=== PATIENT | female | born 1960 | race Caucasian/White ===

== ENCOUNTER 2017-03-27 09:30 | Emergency (ER) | payer OTHER ==
[~2017-03-27] VITALS: Ht 162.6 cm; Wt 81.6 kg
[2017-03-27 09:41] VITALS: BP_SYST 128
--- NOTE | 2017-03-27 09:45 | NUR ---
Patient to ER bed 2 to gown for evaluation. Side rails up. Report RECEIVED FROM JANIS ROA..
[2017-03-27 10:07] LABS: BILIRUBIN,URINE NEGATIVE (NEGATIVE); CLARITY/URINE CLEAR (CLEAR); COLOR,URINE YELLOW (YELLOW); GLUCOSE,URINE NEGATIVE (NEGATIVE); KETONES,URINE TRACE (NEGATIVE); LEUKOCYTE ESTERASE ,URINE 1+ (NEGATIVE); NITRITE, URINE NEGATIVE (NEGATIVE); PROTEIN URINE NEGATIVE (NEGATIVE); UROBILINOGEN,URINE 0.2 (0.2-1.0)
[2017-03-27 10:08] LABS: BLOOD, URINE TRACE (NEGATIVE)
[2017-03-27 10:12] LABS: BASOPHILS % (AUTO) 0.7 % (0.0-2.0); EOSINOPHILS % (AUTO) 0.1 % (0.0-4.0); HEMATOCRIT 44.9 % (36-48); LYMPHOCYTES # (AUTO) 1.7 K/uL (1.0-5.5); LYMPHOCYTES % (AUTO) 34.2 % (20.5-51.5); MEAN CORPUSCULAR HEMOGLOBIN 30 pg (27-31); MEAN CORPUSCULAR HGB CONC 33 % (32-36); MEAN CORPUSCULAR VOLUME 90 fL (79.0-98.0); MONOCYTES # (AUTO) 0.5 K/uL (0.0-1.0); MONOCYTES % (AUTO) 11.3 % (1.7-9.3); NEUTROPHILS # (AUTO) 2.7 K/uL (1.8-7.7); NEUTROPHILS % (AUTO) 53.7 % (40.0-70.0); PLATELET COUNT (AUTO) 216 K/uL (130-430); RED BLOOD CELL COUNT(AUTO) 5.02 MIL/uL (4.2-6.2); RED CELL DISTRIBUTION WIDTH 11.7 % (9.0-15.0); WHITE BLOOD COUNT (AUTO) 4.9 K/uL (4.8-10.8)
[2017-03-27 10:15] LABS: BACTERIA,URINE FEW /HPF (None Seen); MUCUS,URINE 1+ /LPF (None Seen); RBC,URINE 0-3 /HPF (0-3)
[2017-03-27 10:24] LABS: CALCIUM 9.1 mg/dL (8.4-11.0); CREATININE 0.83 mg/dL (0.55-1.30); POTASSIUM 3.4 mmol/L (3.5-5.1)
[2017-03-27 10:28] LABS: ALBUMIN 3.7 g/dL (3.4-4.8); TOTAL BILIRUBIN 0.3 mg/dL (0.0-1.0)
[2017-03-27] MEDS: NACL 0.9% 1,000 ML IV ONE (10:41)
--- NOTE | 2017-03-27 10:45 | NUR ---
Patient transported to radiology via GURNEY, accompanied by RAD STAFF.
[2017-03-27] MEDS: KETOROLAC TROMETHAMINE 30 MG VIAL IVP ONE (10:51)
--- NOTE | 2017-03-27 10:52 | NUR ---
Returned from radiology, back to [facility].
--- NOTE | 2017-03-27 11:30 | NUR ---
PT REPORTS PAIN RESOLVING, PT GIVEN TYLENOL FOR PAIN RELIEF
[2017-03-27] MEDS: POTASSIUM CHLORIDE 10 MEQ TAB.PRT.SR PO ONE (11:47)
[2017-03-27] MEDS: ACETAMINOPHEN 325 MG TABLET PO ONE (12:12)
[2017-03-27 12:49] VITALS: BP_SYST 124
--- NOTE | 2017-03-27 12:49 | NUR ---
Patient given written and verbal discharge instructions and verbalizes understanding. ER MD discussed with patient the results and treatment provided. Patient in stable condition. ID arm band removed. IV catheter removed intact and dressing applied, no active bleeding. Rx of Albuterol and Cipro given. Patient educated on pain management and to follow up with PMD. Pain Scale 0. Opportunity for questions provided and answered.
[2017-03-27] MEDS ORDERED: LORazepam 2 MG/ML VIAL (FOR ER USE) ONE (19:15)
== END 2017-03-27 12:49 | disposition home or self-care (01) ==
LOC: SED 09:30
DX: J40 Bronchitis, not specified as acute or chronic (principal); N39.0 Urinary tract infection, site not specified; R19.7 Diarrhea, unspecified; Z88.2 Allergy status to sulfonamides
CPT/HCPCS: 36415; 71046; 74176; 80053; 81000; 83605; 83690; 85025; 86710; 87040; 87086; 96361; 96374; 99285; J1885; J2060; J7030

== ENCOUNTER 2018-12-04 20:55 | Inpatient (IN) | payer OTHER ==
[~2018-12-04] VITALS: Ht 162.6 cm; Wt 86.6 kg
[2018-12-04 21:10] VITALS: BP_SYST 135
--- NOTE | 2018-12-04 21:30 | NUR ---
Patient triaged and placed in waiting room. VSS and patient appears in no acute distress at this time. Accompanied by , awaiting available bed, and MD notified of need for MSE.Dr Quezada notified pt has fever and elevated HR , Dr Quezada ordering labs at this time.
[2018-12-04 21:37] LABS: BILIRUBIN,URINE NEGATIVE (NEGATIVE); CLARITY/URINE CLEAR (CLEAR); COLOR,URINE YELLOW (YELLOW); GLUCOSE,URINE NEGATIVE (NEGATIVE); KETONES,URINE TRACE (NEGATIVE); LEUKOCYTE ESTERASE ,URINE NEGATIVE (NEGATIVE); NITRITE, URINE NEGATIVE (NEGATIVE); PH,URINE 7.5 (5.0-8.0); PROTEIN URINE NEGATIVE (NEGATIVE)
[2018-12-04 21:51] LABS: BLOOD, URINE TRACE (NEGATIVE)
[2018-12-04 21:52] LABS: BACTERIA,URINE RARE /HPF (None Seen); WBC,URINE 0-3 /HPF (0-3)
[2018-12-04 21:55] LABS: BASOPHILS % (AUTO) 0.5 % (0.0-2.0); EOSINOPHILS % (AUTO) 0.5 % (0.0-4.0); HEMATOCRIT 40.8 % (36-48); HEMOGLOBIN 14.1 g/dL (12.0-16.0); LYMPHOCYTES # (AUTO) 0.8 K/uL (1.0-5.5); LYMPHOCYTES % (AUTO) 11.5 % (20.5-51.5); MEAN CORPUSCULAR HEMOGLOBIN 31 pg (27-31); MEAN CORPUSCULAR HGB CONC 34 % (32-36); MEAN CORPUSCULAR VOLUME 91 fL (79.0-98.0); MONOCYTES # (AUTO) 0.5 K/uL (0.0-1.0); MONOCYTES % (AUTO) 7.4 % (1.7-9.3); NEUTROPHILS # (AUTO) 5.4 K/uL (1.8-7.7); NEUTROPHILS % (AUTO) 80.1 % (40.0-70.0); PLATELET COUNT (AUTO) 186 K/uL (130-430); RED BLOOD CELL COUNT(AUTO) 4.49 MIL/uL (4.2-6.2); WHITE BLOOD COUNT (AUTO) 6.7 K/uL (4.8-10.8)
[2018-12-04 22:07] LABS: CALCIUM 9.1 mg/dL (8.4-11.0); CREATININE 0.8 mg/dL (0.55-1.30); POTASSIUM 3.6 mmol/L (3.5-5.1)
--- NOTE | 2018-12-04 22:08 | NUR ---
Patient to ER bed 08 to gown for evaluation. Side rails up. Report given to JANINA PETERSEN
[2018-12-04 22:13] LABS: PROTHROMBIN TIME 10.1 SECS (9.5-12.5)
[2018-12-04 22:14] LABS: ALBUMIN 3.2 g/dL (3.4-4.8); TOTAL BILIRUBIN 0.4 mg/dL (0.0-1.0)
--- NOTE | 2018-12-04 22:15 | NUR ---
Pt C/O dizziness, weakness, nausea, vomiting, fever and diarrhea since Monday. Pt states symptoms are getting progressively worse. Denies any chest pain, shortness of breath, or any other symptoms at this time. Will continune to monitor.
--- NOTE | 2018-12-04 22:30 | NUR ---
# 18 gauge angiocath placed to RT AC. Use of asceptic technique. Opsite placed over site. Blood return noted. Blood for lab drawn from site. Flushed with 10 cc of normal saline. No evidence of infiltration noted. Patient tolerated well.
--- NOTE | 2018-12-04 22:35 | NUR ---
Pt ambulated to the restroom and proceeded to vomit. Dr. Quezada and verbal orders for Zofran 4mg IVP. Medication has been given, will continue to monitor.
[2018-12-04] MEDS ORDERED: ONDANSETRON HCL 4 MG/2 ML VIAL ONE (22:42)
[2018-12-04] MEDS ORDERED: ONDANSETRON HCL 4 MG/2 ML VIAL IVP ONE ×2 (23:00→23:30)
[2018-12-04] MEDS ORDERED: NACL 0.9% 1,000 ML IV ONE ×2 (23:15→23:30)
[2018-12-04] MEDS ORDERED: ACETAMINOPHEN 325 MG TABLET PO ONE (23:15)
--- NOTE | 2018-12-04 23:18 | NUR ---
ER Dr. Quezada at bedside examining patient.
[2018-12-04] MEDS ORDERED: MORPHINE 2 MG/ML INJ. SYRINGE IVP ONE (23:30)
--- NOTE | 2018-12-04 23:45 | NUR ---
Patient transported to radiology via gurney, accompanied by rad staff.
--- NOTE | 2018-12-04 23:54 | NUR ---
Pt returned in stable condition, will continue to monitor.
[2018-12-05] VITALS (7 sets, daily range): BP systolic 91–124
--- NOTE | 2018-12-05 | NUR ---
Pt is sleeping in bed, no acute distress noted at this time. Will continue to monitor.
[2018-12-05] MEDS ORDERED: metroNIDAZOLE 500 mg/NS 100 ML IV ONE (00:45)
[2018-12-05] MEDS ORDERED: OMEP40CA33 PO (01:26)
[2018-12-05] MEDS ORDERED: FIORINAL PO (01:26)
[2018-12-05] MEDS ORDERED: IBUP-1971 PO (01:26)
--- NOTE | 2018-12-05 01:26 | NUR ---
Medication reconciliation completed with information provided by patient. Any prior medication reconciliation on file was reviewed and corrected.
[2018-12-05] MEDS ORDERED: MORPHINE 2 MG/ML INJ. SYRINGE IVP PRN (02:00)
[2018-12-05] MEDS ORDERED: MORPHINE 2 MG/ML INJ. SYRINGE IVP ONE (02:15)
--- NOTE | 2018-12-05 02:32 | NUR ---
Patient will be admitted to care of Dr. Lan. Admitted to telemetry unit. Will go to room 100B. Belongings list completed. Summary report printed. Report will be given at bedside.
--- NOTE | 2018-12-05 02:49 | NUR ---
Pt will be medicated with Morphine prior to transfer to the floor.
[2018-12-05] MEDS: ONDANSETRON HCL 4 MG/2 ML VIAL IVP PRN ×3 (02:53→21:58)
--- NOTE | 2018-12-05 03:12 | NUR ---
ADMISSION NOTE Received patient from ER via gurney. Patient admitted with diagnosis of ABDOMINAL PAIN POSSIBLE DIVERTICULITIS. Patient is awake, alert, oriented X 4. Patient oriented to hospital room, call light, toileting, pain management and safety-teach back done. Patient informed that EMILY will be HER nurse and that their room number is 100B. Personal belongings checked and Belongings List documented. Call light within reach.
[2018-12-05] MEDS ORDERED: KCL 20 mEq in NS 1000 mL 1,000 ML IV ONE (03:24)
[2018-12-05] MEDS: KCL 20 mEq in NS 1000 mL 1,000 ML IV SCH ×2 (03:31→15:58)
--- NOTE | 2018-12-05 04:28 | NUR ---
RN NOTE PT REPORTING FEELING LIGHTHEADED AND SOB. PT SATTING 97% ON RA. PT PUT ON O2 AT 2L VIA NC. PT REPORTED FEELING LESS LIGHTHEADED. TO CALL .
--- NOTE | 2018-12-05 04:32 | NUR ---
SPOKE TO DR. REYES REGARDING PT'S REPORT OF FEELING CONGESTED IN THE CHEST AND INEFFECTIVE COUGH. MD ORDERED DUONEB BREATHING TREATMENT ONCE. WILL CARRY OUT.
[2018-12-05] MEDS ORDERED: IPRATROPIUM/ALBUTEROL SULFATE 3 ML AMPUL.NEB (DUONEB) INH SCH (04:44)
--- NOTE | 2018-12-05 05:00 | NUR ---
CONSULT: CONSULT CALLED FOR ABRAHAM RIVAS DR. WARPER FIXER THIS MORNING REASON FOR CONSULT: ABDOMINAL PAIN REQUESTING CONSULT: DR. REYES POCKET ASSEMBLER PHONE NUMBER: [phone]
--- NOTE | 2018-12-05 05:39 | NUR ---
SPOKE TO DR. REYES REGARDING PT'S CONTINUED NAUSEA AND HEADACHE. MD ORDERED REGLAN 10 MG IVP ONCE. MD ALSO ORDERED TYLENOL 650 MG RECTAL SUPPOSITORY Q6 PRN. WILL IMPLEMENT.
[2018-12-05] MEDS ORDERED: METOCLOPRAMIDE HCL 10 MG/2 ML VIAL IVP SCH (05:45)
[2018-12-05] MEDS ORDERED: ACETAMINOPHEN 650 MG SUPP.RECT RC PRN (05:45)
--- NOTE | 2018-12-05 05:45 | NUR ---
REGLAN PT GIVEN REGLAN 10 MG IVP ORDERED. MEDICATION DISCUSSED WITH PT, PT VERBALIZED UNDERSTANDING. SAFETY MAINTAINED. WILL MONITOR.
--- NOTE | 2018-12-05 07:23 | NUR ---
CLOSING NOTE PT RESTING IN BED, NO S/S OF ACUTE DISTRESS, ALL NEEDS MET, WILL ENDORSE CARE TO DAY SHIFT RN.
[2018-12-05] MEDS: PANTOPRAZOLE SODIUM 40 MG/VIAL (PROTONIX) IVP SCH (09:13)
[2018-12-05] MEDS ORDERED: INSULIN LISPRO SLIDING SCALE 100 UNITS/ML VIAL (humaLOG) SUBCUT PRN (09:15)
[2018-12-05] MEDS ORDERED: DEXTROSE 50%-WATER 50 ML DISP.SYRIN IVP PRN (09:30)
[2018-12-05] MEDS: metroNIDAZOLE 250 mg/NS 50 ML IV SCH ×2 (09:30→22:04)
[2018-12-05] MEDS ORDERED: GLUCOSE 15 GM GEL (in 37.5 GM TUBE) PO PRN (09:30)
[2018-12-05] MEDS ORDERED: D5W 1,000 ML IV PRN (09:30)
[2018-12-05] MEDS: LEVOFLOXACIN 500 MG/D5W 100 ML IV SCH (09:30)
[2018-12-05] MEDS: IPRATROPIUM/ALBUTEROL SULFATE 3 ML AMPUL.NEB (DUONEB) INH SCH ×2 (13:24→20:01)
--- NOTE | 2018-12-05 15:43 | NUR ---
PULMO CONSULT PAGED: PAGED MD GREWAL FOR CONSULT. S/W NMARISOL ANSWERING SERVICE.
[2018-12-05] MEDS ORDERED: IOHEXOL 100 ML IV ONE (18:20)
--- NOTE | 2018-12-05 19:15 | NUR ---
change of shift.pt.presents quiescent affect;calm.pt.presents studies re;abdomen pain/discomfort;ct-scan.pt.presents iv access; intact;patent: iv fluids infusing.pt.capable to ambulate w/out assistance.general status stable.respiratory status stable:unlabored.call light/ telephone w/in reach of the pt.
--- NOTE | 2018-12-05 20:00 | NUR ---
pt.assessed.v/s assessed.values w/in normal limits;02-sat%=96%@room air.breathing pattern/character;unlabored.i have apprised the pt.that snacks/beverages are available w/in the shift;w/in diet status;clear liquids.no requests posited@this hour.iv access; ;intact;patent.general status stable.no c/o pain,nausea.call light/telephone w/in reach of the pt.
--- NOTE | 2018-12-05 21:59 | NUR ---
PAGED I PAGED DR. REYES @ [phone] I SPOKE WITH LEN NELSON
--- NOTE | 2018-12-05 22:00 | NUR ---
p.assessed.pt.had requested medication nausea;i have administered zofran;4mg ivp.pt.has requested medication pain;fiorinal. i reviewed the emar;med-list and noted no fiorinal had not been ordered;pt.had c/o migraine pain.i apprised the pt.the attending md; to be paged.no additional requests@this hour.i have administered flagyl;abx;ivpb.call light/telephone w/in reach of the pt.iv fluids infusing. general status stable.respiratory status stable;unlabored.pt.capable to reposition self.
--- NOTE | 2018-12-05 22:01 | NUR ---
DR. REYES CALLED BACK
[2018-12-05] MEDS: ACETAMINOPHEN 325 MG TABLET PO PRN (22:29)
--- NOTE | 2018-12-05 22:30 | NUR ---
i had apprised the pt.that tylenol/morphine had been ordered/prn;pain.pt has requested tylenol awaiting the order for fiorinal. i have administered the tylenol;pain.to f/u re;pain medication efficacy per pain mgx protocol.
[2018-12-05] MEDS ORDERED: FIORCET PO SCH ×2 (23:00)
--- NOTE | 2018-12-06 | NUR ---
pt.assessed.v/s assessed;values w/in normal limits.o2-sat%=96%.i have assessed the blood glucose;value;101mg/dl.pt.had requested fiorcet.i have administered fiorcet po x2 tabs.no additional requests posited @this hour.iv access;intact;patent.iv fluids infusing.general status stable.respiratory status stable;unlabored.pt.capable to reposition self.call light/telephone w/in reach of the pt.
[2018-12-06] MEDS: KCL 20 mEq in NS 1000 mL 1,000 ML IV SCH (00:24)
[2018-12-06 00:39] VITALS: BP_SYST 132
[2018-12-06] MEDS: IPRATROPIUM/ALBUTEROL SULFATE 3 ML AMPUL.NEB (DUONEB) INH SCH ×4 (01:35→20:28)
--- NOTE | 2018-12-06 02:00 | NUR ---
pr.assessed.pt.presents quiescent affect;calm,somnolent.iv access;intact;patent;iv fluids infusing.general status stable.respiratory status sable;unlabored.pt.capable to reposition self.call light/telephone w/in reach of the pt.
--- NOTE | 2018-12-06 04:00 | NUR ---
pt.assessed.pt.presents quiescent affect;calm,somnolent.iv acces intact;patent;iv fluids infusing.general status stable.respiratory status stable;unlabored.pt.capable to reposition self.call light/telephone w/in reach of the pt.
--- NOTE | 2018-12-06 06:30 | NUR ---
pt.assessed.pt.presents quiescent affect;calm,resting.i have assessed the blood glucose;value;98mg/dl.i inquire if i may provide a snack.pt.requested jello and water.i have provided the jello/water.no c/o pain,nausea.iv acces intact;patent.pt.capable to reposition self. general status stable.respiratory status stable;unlabored.call light/telephone w/in reach of the pt.
[2018-12-06 06:47] LABS: ALANINE AMINOTRANSFERASE 42 U/L (12-78); ALBUMIN 2.9 g/dL (3.4-4.8); AMYLASE 37 U/L (0-100); ANION GAP 8 (5-15); ASPARTATE AMINOTRANSFERASE 31 U/L (10-37); BILIRUBIN,DIRECT 0.1 mg/dL (0.0-0.3); CALCIUM 9.1 mg/dL (8.4-11.0); CHLORIDE 108 mmol/L (98-107); CREATININE 0.55 mg/dL (0.55-1.30); GLUCOSE 93 mg/dL (70-99); LIPASE 81 U/L (73-393); POTASSIUM 3.8 mmol/L (3.5-5.1); SODIUM SERUM 142 mmol/L (136-145); TOTAL BILIRUBIN 0.3 mg/dL (0.0-1.0); UREA NITROGEN, BLOOD 5 mg/dL (8-21)
[2018-12-06 06:52] LABS: GFR AFRICAN AMERICAN 146 mL/min (>90)
[2018-12-06 07:13] LABS: BASOPHILS % (AUTO) 0.4 % (0.0-2.0); EOSINOPHILS % (AUTO) 0.9 % (0.0-4.0); HEMATOCRIT 37.5 % (36-48); HEMOGLOBIN 12.9 g/dL (12.0-16.0); LYMPHOCYTES # (AUTO) 1.4 K/uL (1.0-5.5); LYMPHOCYTES % (AUTO) 34.6 % (20.5-51.5); MEAN CORPUSCULAR HEMOGLOBIN 31 pg (27-31); MEAN CORPUSCULAR HGB CONC 35 % (32-36); MEAN CORPUSCULAR VOLUME 91 fL (79.0-98.0); MONOCYTES # (AUTO) 0.7 K/uL (0.0-1.0); MONOCYTES % (AUTO) 16.5 % (1.7-9.3); NEUTROPHILS % (AUTO) 47.6 % (40.0-70.0); PLATELET COUNT (AUTO) 179 K/uL (130-430); RED BLOOD CELL COUNT(AUTO) 4.13 MIL/uL (4.2-6.2); RED CELL DISTRIBUTION WIDTH 13.2 % (9.0-15.0); WHITE BLOOD COUNT (AUTO) 4.1 K/uL (4.8-10.8)
[2018-12-06 07:30] VITALS: BP_SYST 122
--- NOTE | 2018-12-06 08:00 | NUR ---
OPENING NOTES Pt. is laying in bed and awake. AAOx4. Pt. complains of pain only when coughing, pain scale (numeric) ranging from 2-3. However, pt. current denies any pain and refuses pain medication. Pt. is cooperative this morning and no signs or symptoms of distress noted. Safety precautions in place. IV on her right AC [address] and intact. Call light in reach. Continue to monitor.
[2018-12-06] MEDS: LEVOFLOXACIN 500 MG/D5W 100 ML IV SCH (09:07)
[2018-12-06] MEDS: PANTOPRAZOLE SODIUM 40 MG/VIAL (PROTONIX) IVP SCH (10:13)
[2018-12-06] MEDS: metroNIDAZOLE 250 mg/NS 50 ML IV SCH ×2 (10:17→21:41)
--- NOTE | 2018-12-06 11:44 | NUR ---
Assumed Care: Received report from Esequiel .Seen patient in the room,informed the patient i will be her nurse today.Call light with in reach. Bed locked at lowest position. No complained made.
[2018-12-06 12:00] VITALS: BP_SYST 119
--- NOTE | 2018-12-06 12:00 | NUR ---
BLOOD SUGAR: BLOOD SUGAR =105MG/DL,NO INSULIN COVERAGE NEEDED PER SLIDING SCALE.
--- NOTE | 2018-12-06 16:05 | NUR ---
Dietitian Recommendations * Recommend continuing full liquid diet * Consider advance to soft (low fiber/bland) diet if/when medically appropriate * RD to provide low-fiber medical nutrition therapy education MANDI DORAN Please refer to Nutrition Assessment for details. Addendum: 12/06/18 at [address] Amended: Links added.
[2018-12-06] MEDS ORDERED: COMMUNICATION ORDER XX PRN (16:30)
[2018-12-06] MEDS: guaiFENesin 200 MG/CODEINE 20 MG/ 10 ML UDC PO PRN (16:31)
[2018-12-06] MEDS: 0.45% NACL 1,000 ML IV SCH (16:32)
--- NOTE | 2018-12-06 16:51 | NUR ---
IV NOTES: IV RE SITED AT LEFT FOREARM USING G#22,CONTINUE IVF ORDERED.
[2018-12-06] MEDS ORDERED: FIORICET PO PRN (17:00)
--- NOTE | 2018-12-06 17:25 | NUR ---
BLOOD SUGAR: BLOOD SUGAR TAKEN,NO INSULIN NEEDED PER SLIDING SCALE.
[2018-12-06 17:38] VITALS: BP_SYST 129
--- NOTE | 2018-12-06 18:37 | NUR ---
END OF SHIFT: PATIENT FINISHED DINNER. STILL COUGHING DRY. CALL LIGHT WITH IN REACH. BED LOCKED AT LOWEST POSITION. PRACTICE GUIDELINES MET THOUGH OUT SHIFT.
--- NOTE | 2018-12-06 19:30 | NUR ---
Opening notes Received report. Patient resting comfortably in bed. No signs of distress noted. Breathing even and unlabored. IV patent and intact, infusing fluids. No needs at this time. Call light with the patient. Safety precautions in place.
[2018-12-06 20:00] VITALS: BP_SYST 126
--- NOTE | 2018-12-06 20:38 | NUR ---
PAGED PAGED DR. REYES FOR ORDERS, SPOKE WITH KHOA
--- NOTE | 2018-12-06 21:00 | NUR ---
Resting Patient and patient belongings moved to room 117B. Patient ambulatory with steady gait. Oriented patient to room and call light. Spoke to Dr. Lan about patient not being able to sleep and requesting sleep medicine. Orders to be entered by RN. No other needs. Call light with the patient. Safety precautions in place.
[2018-12-06] MEDS ORDERED: LORazepam 1 MG TABLET PO SCH (21:30)
[2018-12-07 00:19] VITALS: BP_SYST 112
--- NOTE | 2018-12-07 00:30 | NUR ---
Resting Patient resting in bed. No signs of distress noted. Accucheck 90. No insulin necessary. No other needs. Call light with the patient. Safety precautions in place.
[2018-12-07] MEDS: IPRATROPIUM/ALBUTEROL SULFATE 3 ML AMPUL.NEB (DUONEB) INH SCH ×4 (01:00→23:08)
--- NOTE | 2018-12-07 02:30 | NUR ---
Sleeping No signs of distress noted. Breathing even and unlabored. IVF infusing well. Call light with the patient. Safety precautions in place.
--- NOTE | 2018-12-07 04:30 | NUR ---
Sleeping No signs of distress noted. Breathing even and unlabored. IVF infusing well. Call light with the patient. Safety precautions in place.
[2018-12-07] MEDS: 0.45% NACL 1,000 ML IV SCH (06:25)
--- NOTE | 2018-12-07 06:59 | NUR ---
Closing notes Patient resting in bed. No signs of distress noted. Breathing even and unlabored. New bag of IVF hung. Accucheck 97. No insulin necessary. All needs met throughout the shift. Call light with the patient. Safety precautions in place. Will endorse care to day shift RN.
[2018-12-07 07:43] LABS: CREATININE 0.64 mg/dL (0.55-1.30); TOTAL BILIRUBIN 0.3 mg/dL (0.0-1.0)
[2018-12-07 08:00] VITALS: BP_SYST 112
--- NOTE | 2018-12-07 08:00 | NUR ---
ASSUMPTION OF CARE: RECEIVED PT A/A/OX4, DX:ALTERATION IN COMFORT, R/T ABDOMINAL PAIN, DIVERTICULITIS. PT HAS NO S/S OF DISTRESS, NO C/O OF PAIN AT THIS TIME, VSS, AFEBRILE, BREATH SOUNDS ARE CLEAR, BREATHING UNLABORED, NON-PRODUCTIVE COUGH NOTED, IV SITE INTACT, PATENT, NO REDNESS OR SWELLING, ORIENTED TO UNIT, CALL LIGHT PLACED WITHIN REACH, WILL CON'T TO MONITOR AND ASSESS.
[2018-12-07] MEDS ORDERED: BISACODYL 5 MG TABLET.DR (DULCOLAX) PO ONE (08:30)
[2018-12-07] MEDS: PANTOPRAZOLE SODIUM 40 MG/VIAL (PROTONIX) IVP SCH (08:46)
[2018-12-07] MEDS: LEVOFLOXACIN 500 MG/D5W 100 ML IV SCH (08:46)
[2018-12-07] MEDS: POLYETHYLENE GLYCOL 3350, 17 GM/ POWD.PACK PO SCH ×2 (08:46→21:14)
[2018-12-07] MEDS: guaiFENesin 200 MG/CODEINE 20 MG/ 10 ML UDC PO PRN ×2 (08:47→21:10)
[2018-12-07] MEDS: metroNIDAZOLE 250 mg/NS 50 ML IV SCH ×2 (08:56→21:10)
--- NOTE | 2018-12-07 09:00 | NUR ---
PASTE UP ARTIST: MORNING MEDS GIVEN, PER ORDERED BY Tomasz, TOLERATED WELL, WILL CON'T TO MONITOR AND ASSESS.
--- NOTE | 2018-12-07 11:30 | NUR ---
GLUCOSE MONITORING: BLOOD SUGAR LEVEL=95, NO COVERAGE REQUIRED, PT HAS NO DISTRESS NOTED, NO C/O ANY KIND, CALL LIGHT WITHIN REACH, WILL CON'T TO MONITOR AND ASSESS.
[2018-12-07] MEDS: ACETAMINOPHEN 325 MG TABLET PO PRN (11:42)
[2018-12-07 12:50] VITALS: BP_SYST 120
--- NOTE | 2018-12-07 13:00 | NUR ---
NURSES NOTES: PT RESTING IN POSITION OF COMFORT, NO SIGNIFICANT CHANGES NOTED, NO REQUEST MADE, NEEDS MET, WILL CON'T WITH POC.
--- NOTE | 2018-12-07 15:00 | NUR ---
NURSES NOTES: PT RESTING IN POSITION OF COMFORT, NO CHANGES NOTED, NO REQUEST MADE, NEEDS MET, WILL CON'T WITH POC.
[2018-12-07 16:51] VITALS: BP_SYST 124
--- NOTE | 2018-12-07 17:00 | NUR ---
GLUCOSE MONITORING: BLOOD SUGAR EDIMF=979, NO COVERAGE REQUIRED, PT HAS NO DISTRESS NOTED, NO C/O ANY KIND, CALL LIGHT WITHIN REACH, WILL CON'T TO MONITOR AND ASSESS.
[2018-12-07] MEDS ORDERED: BUDESONIDE 0.5 MG/2 ML AMPUL.NEB INH ONE (17:15)
[2018-12-07] MEDS ORDERED: LEVO750T45 PO (18:56)
[2018-12-07] MEDS ORDERED: ALBMDI INH (18:57)
[2018-12-07] MEDS ORDERED: BECL10.62 IH (19:00)
[2018-12-07] MEDS ORDERED: PHEDM120 PO (19:02)
--- NOTE | 2018-12-07 19:45 | NUR ---
INITIAL NOTE AT INITIAL ASSESSMENT, PATIENT IS RESTING IN BED, STABLE, NO SIGNS OF RESPIRATORY DISTRESS. IS AT BEDSIDE. PATIENT VERBALIZES NO PAIN. PLAN OF CARE FOR THE EVENING IS COMMUNICATED WITH THE PATIENT AND HER . PATIENT SUCCESSFULLY DEMONSTRATES CORRECT USAGE OF CALL LIGHT. BED IS LOCKED, ALARMED, AND AT THE LOWEST LEVEL. FALL AND SAFETY PRECAUTIONS WILL BE IN PLACE THROUGHOUT THE SHIFT.
[2018-12-07 20:35] VITALS: BP_SYST 126
--- NOTE | 2018-12-07 21:45 | NUR ---
NOTE PATIENT IS RESTING IN BED, STABLE, NO SIGNS OF RESPIRATORY DISTRESS. IS AT BEDSIDE. CALL LIGHT IS WITHIN REACH. BED IS LOCKED, ALARMED, AND AT THE LOWEST SETTING.
--- NOTE | 2018-12-07 22:15 | NUR ---
D/C Patient Patient given medication reconciliation form and D/C instructions. Exit Care provided. Patient verbalized understanding. MD discussed with patient the results and treatment provided. Ambulatory with steady gait for discharge to home. Patient in stable condition, ID band removed. IV catheter removed, intact and dressing applied, no active bleeding. Rx of PATIENT given. Patient educated on pain management. All belongings sent with patient.
== END 2018-12-07 22:15 | disposition home or self-care (01) | DRG 871 ==
LOC: SED 20:55 → STU 12-05 01:54
PROVIDERS: ADMIT Internal Medicine; ATTEND Internal Medicine
DX: A41.9 Sepsis, unspecified organism (principal); J18.1 Lobar pneumonia, unspecified organism; K57.32 Diverticulitis of large intestine without perforation or abscess without bleeding; E87.1 Hypo-osmolality and hyponatremia; K59.00 Constipation, unspecified; I34.1 Nonrheumatic mitral (valve) prolapse; K21.9 Gastro-esophageal reflux disease without esophagitis; I34.0 Nonrheumatic mitral (valve) insufficiency; R73.9 Hyperglycemia, unspecified; G44.009 Cluster headache syndrome, unspecified, not intractable; Z80.0 Family history of malignant neoplasm of digestive organs; Z83.3 Family history of diabetes mellitus; Z88.2 Allergy status to sulfonamides; Z79.899 Other long term (current) drug therapy; Z95.0 Presence of cardiac pacemaker; Z86.73 Personal history of transient ischemic attack (TIA), and cerebral infarction without residual deficits; Z98.891 History of uterine scar from previous surgery
CPT/HCPCS: 36415; 71045; 71260-TC; 80048; 80053; 80076; 81000-TC; 82150-TC; 82550-TC; 82962; 83605; 83690-TC; 83880; 84484; 85025; 85610-TC; 85730-TC; 86710; 87040-TC; 93005; 94640; 94760; 96361; 96365; 96366; 96367; 96375; 96376; 99285; C9113; G0378; J1956; J2270; J2405; J2765; J3480; J3490; J7620; Q9967

== ENCOUNTER 2018-12-10 12:25 | Outpatient (CLI) | payer OTHER ==
[~2018-12-10 12:25] MED LIST: ALBMDI INH; BECL10.62 IH; FIORINAL PO; IBUP-1971 PO; LEVO750T45 PO; OMEP40CA33 PO; PHEDM120 PO
== END 2018-12-10 21:05 | disposition home or self-care (01) ==
LOC: SRD 12:25
PROVIDERS: ATTEND Internal Medicine
DX: J18.9 Pneumonia, unspecified organism (principal)
CPT/HCPCS: 71046-TC

== ENCOUNTER 2019-10-14 15:52 | Inpatient (IN) | payer OTHER ==
[~2019-10-14] VITALS: Ht 162.6 cm; Wt 83.5 kg
[2019-10-14 15:58] VITALS: BP_SYST 141
--- NOTE | 2019-10-14 16:09 | NUR ---
Patient triaged and placed in waiting room. VSS and patient appears in no acute distress at this time. Awaiting available bed, and MD notified of need for MSE.
--- NOTE | 2019-10-14 16:10 | NUR ---
EMMANUEL Jenkins examining patient.
[2019-10-14] MEDS ORDERED: ASPIRIN 81 MG TAB.CHEW PO ONE (16:15)
[2019-10-14] MEDS ORDERED: MAG HYDROX/AL HYDROX/SIMETH 30 ML, DICYCLOMINE HCL 20 MG, LIDOCAINE VISCOUS 2% 15ML (PO... PO ONE ×3 (16:30)
[2019-10-14] MEDS ORDERED: ONDANSETRON 4 MG ODT TAB PO ONE (16:30)
[2019-10-14 17:22] LABS: BASOPHILS % (AUTO) 0.5 % (0.0-2.0); EOSINOPHILS % (AUTO) 0.6 % (0.0-4.0); HEMATOCRIT 43.9 % (36-48); HEMOGLOBIN 14.4 g/dL (12.0-16.0); LYMPHOCYTES # (AUTO) 1.5 K/uL (1.0-5.5); LYMPHOCYTES % (AUTO) 20.6 % (20.5-51.5); MEAN CORPUSCULAR HEMOGLOBIN 30 pg (27-31); MEAN CORPUSCULAR HGB CONC 33 % (32-36); MEAN CORPUSCULAR VOLUME 91 fL (79.0-98.0); MONOCYTES # (AUTO) 0.5 K/uL (0.0-1.0); MONOCYTES % (AUTO) 7.1 % (1.7-9.3); NEUTROPHILS # (AUTO) 5.3 K/uL (1.8-7.7); NEUTROPHILS % (AUTO) 71.2 % (40.0-70.0); PLATELET COUNT (AUTO) 234 K/uL (130-430); RED BLOOD CELL COUNT(AUTO) 4.81 MIL/uL (4.2-6.2); RED CELL DISTRIBUTION WIDTH 13.2 % (9.0-15.0); WHITE BLOOD COUNT (AUTO) 7.4 K/uL (4.8-10.8)
[2019-10-14 17:46] LABS: CALCIUM 10.2 mg/dL (8.4-11.0); CREATININE 0.71 mg/dL (0.55-1.30); POTASSIUM 4.1 mmol/L (3.5-5.1)
[2019-10-14 17:51] LABS: ALBUMIN 3.7 g/dL (3.4-4.8); TOTAL BILIRUBIN 0.3 mg/dL (0.0-1.0)
--- NOTE | 2019-10-14 18:06 | NUR ---
Patient to ER bed hallway for evaluation. Side rails up. Report given to JANINA Hansen.
--- NOTE | 2019-10-14 18:08 | NUR ---
Pt brought by self, A&Ox4, pt presents to ER with R lower abdominal pain radiating to R flank area, also c/o N/V, skin pink and warm, cap refill <3, VSS, respirations even and unlabored.
[2019-10-14] MEDS ORDERED: DIPHENHYDRAMINE INJ 50 MG/ML VIAL IM ONE (18:15)
[2019-10-14] MEDS ORDERED: MORPHINE SULFATE 10 MG/ML VIAL IM ONE (18:15)
[2019-10-14 18:23] LABS: BILIRUBIN,URINE NEGATIVE (NEGATIVE); BLOOD, URINE NEGATIVE (NEGATIVE); CLARITY/URINE CLEAR (CLEAR); COLOR,URINE YELLOW (YELLOW); GLUCOSE,URINE NEGATIVE (NEGATIVE); KETONES,URINE NEGATIVE (NEGATIVE); LEUKOCYTE ESTERASE ,URINE NEGATIVE (NEGATIVE); NITRITE, URINE NEGATIVE (NEGATIVE); PH,URINE 5.5 (5.0-8.0); PROTEIN URINE NEGATIVE (NEGATIVE); UROBILINOGEN,URINE 0.2 (0.2-1.0)
--- NOTE | 2019-10-14 18:25 | NUR ---
Pt refused morphine at this time, Misty Markham notified.
[2019-10-14] MEDS ORDERED: HYDROcodone/ACETAMIN 5-325 MG TAB (NORCO/ VICODIN) PO ONE (18:30)
[2019-10-14] MEDS ORDERED: ALBUTEROL MDI INHALATION 8 GM INH INH SCH (20:15)
[2019-10-14] MEDS ORDERED: MORPHINE 2 MG/ML INJ. SYRINGE IVP PRN (20:15)
[2019-10-14] MEDS ORDERED: METOCLOPRAMIDE HCL 10 MG/2 ML VIAL IVP PRN (20:15)
[2019-10-14] MEDS ORDERED: ONDANSETRON HCL 4 MG/2 ML VIAL IVP PRN (20:15)
--- NOTE | 2019-10-14 20:30 | NUR ---
Pt A&Ox4, VSS, respirations even and unlabored, pt resting at this time
[2019-10-14 20:48] VITALS: BP_SYST 125
[2019-10-14] MEDS: D5NS 1,000 ML IV SCH (21:06)
[2019-10-14] MEDS: MORPHINE 4 MG/ML INJ. SYRINGE IVP PRN (21:10)
[2019-10-15] MEDS ORDERED: OMEP20TA20 PO (00:29)
[2019-10-15 00:49] VITALS: BP_SYST 115
--- NOTE | 2019-10-15 00:56 | NUR ---
Patient will be admitted to care of Dr Albarran . Admitted to medsurg unit. Will go to room 100A. Belongings list completed. Complete and up to date summary report printed. SBAR report to be given at bedside with opportunity for questions.
--- NOTE | 2019-10-15 05:00 | NUR ---
CONSULTATION PAGED/CALLED Reason for Consultation: CHOLECYSTITIS Person Who was Notified: DENIZ Consulting Physician: Yuko DEAN Sports Trainer Specialty: Ordering Physician:
[2019-10-15] MEDS: MORPHINE 4 MG/ML INJ. SYRINGE IVP PRN (05:58)
[2019-10-15] MEDS ORDERED: ALBUTEROL SULFATE 0.083% 2.5 MG/3 ML VIAL.NEB INH PRN (07:00)
--- NOTE | 2019-10-15 07:00 | NUR ---
OPENING NOTE Assumed care from malariologist RN at 0700 am. Patient alert awake oriented. Able to make needs known. Patient vital signs stable. Will continue care. 1000. Patient has clear liquid order and NPO after midnight for SHERRI Chandra, Will get consent from patient b/4 change of shift. Patient still has moderated abd pain. IV fluid infusing. Will continue care 1200: Patient C/O headache and Tylenol given. IV site changed to left upper arm. Will continue care Addendum: 10/15/19 at 1923 by Herlinda Emmanuel RN 1824: Patient signed consent for surgery. Tolerated clear liquid diet. CLOSING NOTE 1920: Report given to Angela ROA. No major changes noted
[2019-10-15] MEDS: BUDESONIDE 0.5 MG/2 ML AMPUL.NEB INH SCH ×2 (08:08→20:30)
[2019-10-15 08:43] VITALS: BP_SYST 110
[2019-10-15] MEDS: D5NS 1,000 ML IV SCH ×2 (10:00→22:45)
[2019-10-15 11:24] VITALS: BP_SYST 119
[2019-10-15] MEDS: ACETAMINOPHEN 325 MG TABLET PO PRN (11:34)
[2019-10-15 15:29] VITALS: BP_SYST 119
--- NOTE | 2019-10-15 19:30 | NUR ---
Initial note: Received report from sea RN. Patient is in bed, resting. No acute distress. Even, nonlabored breathing on room air. IV fluids is infusing as ordered. IV site is patent and intact. Notified patient that she has to be NPO after midnight. Patient verbalized understanding. Bed is locked at lowest position. Side rails up x2. Bed alarm is on. Call light is with patient. Safety and fall precautions in place. Will continue plan of care.
[2019-10-15 20:00] VITALS: BP_SYST 117
--- NOTE | 2019-10-15 22:00 | NUR ---
Rounds: Patient is in bed, resting. No s/s of acute distress. Tolerating room air. Respirations are even and nonlabored. Call light is with patient. Safety and fall precautions in place. Will continue to monitor.
[2019-10-16] VITALS: BP_SYST 117; BP_SYST 120
--- NOTE | 2019-10-16 00:10 | NUR ---
Rounds: Patient is sleeping in bed. No signs of acute distress. Respirations are even, nonlabored on room air. Call light is with patient. Safety and fall precautions in place. Will continue monitoring.
--- NOTE | 2019-10-16 02:19 | NUR ---
Rounds: Patient is in bed, sleeping. No signs of acute distress. Even, nonlabored breathing on room air. Call light is with patient. Safety and fall precautions in place. Will continue to monitor.
--- NOTE | 2019-10-16 04:55 | NUR ---
Rounds: Patient is in bed, resting. No acute distress. Respirations are even and nonlabored on room air. Call light is with patient. Safety and fall precautions in place. Will continue monitoring.
--- NOTE | 2019-10-16 06:42 | NUR ---
Closing note: Patient is in bed, resting. No acute distress. Even, nonlabored breathing on room air. IV fluids infusing as ordered. IV site patent and intact. All needs met. Bed is locked at lowest position. Side rails up x2. Call light is with patient. Safety and fall precautions in place. Will endorse care to dayshift RN.
--- NOTE | 2019-10-16 06:57 | NUR ---
Spoke to OR: Spoke to Gregoria in the OR. Confirmed consent for surgery was signed. Was told patient transfer to OR will be between [id number]. Will endorse to sea ROA.
[2019-10-16 07:25] LABS: PROTHROMBIN TIME 9.8 SECS (9.5-12.5)
[2019-10-16] MEDS: BUDESONIDE 0.5 MG/2 ML AMPUL.NEB INH SCH ×2 (07:39→20:32)
[2019-10-16] MEDS ORDERED: IOHEXOL 50 ML IV ONE (07:41)
[2019-10-16] MEDS ORDERED: BUPIVACAINE LIPOSOME/PF 266 MG/20 ML VIAL INFIL ONE (07:53)
[2019-10-16 08:00] VITALS: BP_SYST 116
[2019-10-16] MEDS ORDERED: ACETAMINOPHEN/CODEINE 300 MG-30 MG TABLET PO PRN (08:15)
[2019-10-16] MEDS ORDERED: ONDANSETRON HCL 4 MG/2 ML VIAL IVP PRN ×2 (08:15→08:45)
[2019-10-16] MEDS ORDERED: HYDROmorphone 1 MG INJ. 1 MG/ML AMPUL IVP PRN (08:45)
[2019-10-16] MEDS ORDERED: NALOXONE HCL 0.4 MG/ML AMP (NARCAN) IVP PRN (08:45)
[2019-10-16] MEDS ORDERED: ROCURONIUM BROMIDE 10 MG/ML (ZEMURON) ONE (10:03)
[2019-10-16] MEDS ORDERED: NS 1000 ML IV.SOLN IV ONE (10:03)
[2019-10-16] MEDS ORDERED: NS IRRIG SOLN 1000 ML IR ONE (10:03)
[2019-10-16] MEDS ORDERED: fentaNYL CITRATE 250 MCG/5 ML AMP ONE (10:03)
[2019-10-16] MEDS ORDERED: GLYCOPYRROLATE 0.2 MG/ML VIAL ONE (10:03)
[2019-10-16] MEDS ORDERED: PROPOFOL 200MG/ 20ML VIAL (DIPRIVAN) IV ONE (10:03)
[2019-10-16] MEDS ORDERED: BUPIVACAINE /EPINEPHRINE/PF 0.25% 30 ML VIAL INJ ONE (10:03)
[2019-10-16] MEDS ORDERED: GLUCAGON,HUMAN RECOMBINANT 1 MG VIAL ONE (10:03)
[2019-10-16] MEDS ORDERED: SEVOFLURANE 15 MIN GAS INH ONE (10:03)
[2019-10-16] MEDS ORDERED: KETOROLAC TROMETHAMINE 30 MG VIAL ONE (10:03)
[2019-10-16] MEDS ORDERED: NEOSTIGMINE METHYLSULFATE 1 MG/ML, 10 ML VIAL ONE (10:03)
[2019-10-16] MEDS ORDERED: ONDANSETRON HCL 4 MG/2 ML VIAL ONE (10:03)
[2019-10-16] MEDS ORDERED: SUCCINYLCHOLINE CHLORIDE 20 MG/ML(QUELICIN) ONE (10:03)
[2019-10-16] MEDS ORDERED: LR 1,000 ML IV.SOLN IV ONE (10:03)
[2019-10-16] MEDS ORDERED: CEFAZOLIN 1 GM IVPB PREMIX 50 ML IV ONE (10:03)
[2019-10-16] MEDS ORDERED: HYDROmorphone 1 MG INJ. 1 MG/ML AMPUL ONE (10:28)
[2019-10-16 11:00] VITALS: BP_SYST 132
[2019-10-16] MEDS: D5NS 1,000 ML IV SCH (12:04)
--- NOTE | 2019-10-16 14:36 | NUR ---
Patient is in bed resting. Patient left to OR around 07:45. Patient arrived back from OR around 11AM. Spoke with patients with update on patients status. Vital signs stable. Patient denies pain. Patient stated she has minor chest tightness. Head of the bed elevated. Ice packs applied to patients forehead. IV fluids running. Will continue to monitor. Bed in low position. Call light in reach. Two side rails up. Will continue to monitor patient throughout shift.
[2019-10-16 16:10] VITALS: BP_SYST 130
--- NOTE | 2019-10-16 18:25 | NUR ---
Patient is in bed resting. Patient denies pain, shortness of breath, and distress. All care needs met throughout shift. Bed in low position. Call light in reach. Two side rails up. Will give report to night nurse.
[2019-10-16 19:20] VITALS: BP_SYST 119
--- NOTE | 2019-10-16 19:20 | NUR ---
INITIAL NOTES PATIENT IS STABLE AND LAYING IN BED. NO S/S OF RESPIRATORY DISTRESS NOTED. CALL LIGHT IN REACH. PATIENT SUCCESSFULLY DEMONSTRATES USAGE OF CALL LIGHT. BED IS LOCKED, AND AT THE LOWEST POSITION. PATIENT EDUCATED ON BED ALARM, PATIENT REFUSE. FALL, SAFETY, ASPIRATION, AND RESPIRATORY PRECAUTIONS WILL BE IN PLACE THROUGHOUT THE SHIFT. PLAN OF CARE IS DISCUSSED WITH PATIENT.
[2019-10-16] MEDS: MORPHINE 4 MG/ML INJ. SYRINGE IVP PRN (19:53)
--- NOTE | 2019-10-16 21:20 | NUR ---
PATIENT IS STABLE AND SLEEPING IN BED. NO S/S OF RESPIRATORY DISTRESS NOTED. CALL LIGHT IN REACH.
--- NOTE | 2019-10-16 23:20 | NUR ---
PATIENT IS LAYING IN BED AND STABLE. NO S/S OF RESPIRATORY DISTRESS NOTED. CALL LIGHT IN REACH.
[2019-10-17 01:09] VITALS: BP_SYST 120
--- NOTE | 2019-10-17 01:20 | NUR ---
PATIENT IS RESTING IN BED. NO S/S OF RESPIRATORY DISTRESS NOTED. CALL LIGHT IN REACH.
[2019-10-17] MEDS: D5NS 1,000 ML IV SCH ×2 (01:56→14:44)
[2019-10-17] MEDS: MORPHINE 4 MG/ML INJ. SYRINGE IVP PRN (02:08)
--- NOTE | 2019-10-17 03:20 | NUR ---
PATIENT IS SLEEPING IN BED. NO S/S OF RESPIRATORY DISTRESS NOTED. CALL LIGHT IN REACH.
--- NOTE | 2019-10-17 04:17 | NUR ---
PATIENT IS RESTING IN BED AND STABLE. NO S/S OF RESPIRATION DISTRESS NOTED. CALL LIGHT IN REACH.
--- NOTE | 2019-10-17 07:38 | NUR ---
Nutrition Update Mike scale 17 noted. Pt admitted for cholelithiasis Diet: Full Liquid BMI: 31.6 kg/m2 RD to follow per nutrition care standards.
--- NOTE | 2019-10-17 07:38 | NUR ---
Walked into patients room to do morning rounds, patient was not in her bed, knocked the restroom door and patient was in the restroom and stated she was ok. I will check on her again shortly. Nilsa ROA
[2019-10-17] MEDS: BUDESONIDE 0.5 MG/2 ML AMPUL.NEB INH SCH (07:45)
--- NOTE | 2019-10-17 07:59 | NUR ---
CLOSING NOTES PATIENT IS STABLE AND LAYING. NO S/S OF RESPIRATORY DISTRESS. CALL LIGHT IN REACH. BED IS LOCKED, AND LOWEST POSITION. FALL, SAFETY, ASPIRATION, AND RESPIRATORY PRECAUTION HAS BEEN IN PLACE THROUGHOUT THE SHIFT. SBAR REPORT ENDORSED TO AM NURSE BY BEDSIDE.
[2019-10-17 08:00] VITALS: BP_SYST 122
--- NOTE | 2019-10-17 08:12 | NUR ---
Initial notes: Patient is awake and alert this morning, she is not showing any signs of distress. Her IV line is patent and skin is intact. Patient states she has pain but refused tylenol #3 and morphine and requested plain acetominophen. Plan is for her to go home if she can tolerate food and recovers from surgery. I got a full report from the shift stacker nurse. Bed is low, locked, 2 side rails up and call light is within reach. Nilsa ROA
[2019-10-17] MEDS: ACETAMINOPHEN 325 MG TABLET PO PRN (09:55)
--- NOTE | 2019-10-17 09:55 | NUR ---
Pain meds were given to patient, she refused morphine and tylenol w/codeine, she stated she only wanted plain tylenol. Will assess her pain level in about 30 mins. Nilsa ROA
--- NOTE | 2019-10-17 10:01 | NUR ---
Patient is sitting in bed, does not show any signs of distress at this time. Bed is low, locked, 2 side rails up and call light is within reach. Nilsa ROA
--- NOTE | 2019-10-17 11:00 | NUR ---
Assessed patient pain level, she stated it is less but not completely gone. I offered other alteratives such as morphine and she refused. I stated I will check on her later. Bed is low, locked, 2 side rails up and call light is within reach. Nilsa ROA
[2019-10-17 11:28] VITALS: BP_SYST 121
--- NOTE | 2019-10-17 11:30 | NUR ---
Patient requested medical records information, stated I would help provide the information after I returned from lunch, she verbalized comprehension. Nilsa ROA
[2019-10-17 11:32] LABS: BASOPHILS % (AUTO) 0.4 % (0.0-2.0); EOSINOPHILS % (AUTO) 0.6 % (0.0-4.0); HEMATOCRIT 39.8 % (36-48); HEMOGLOBIN 13.1 g/dL (12.0-16.0); LYMPHOCYTES # (AUTO) 1.3 K/uL (1.0-5.5); LYMPHOCYTES % (AUTO) 25.6 % (20.5-51.5); MEAN CORPUSCULAR HEMOGLOBIN 30 pg (27-31); MEAN CORPUSCULAR HGB CONC 33 % (32-36); MEAN CORPUSCULAR VOLUME 92 fL (79.0-98.0); MONOCYTES # (AUTO) 0.4 K/uL (0.0-1.0); MONOCYTES % (AUTO) 7.6 % (1.7-9.3); NEUTROPHILS # (AUTO) 3.3 K/uL (1.8-7.7); NEUTROPHILS % (AUTO) 65.8 % (40.0-70.0); PLATELET COUNT (AUTO) 191 K/uL (130-430); RED BLOOD CELL COUNT(AUTO) 4.33 MIL/uL (4.2-6.2); RED CELL DISTRIBUTION WIDTH 13.1 % (9.0-15.0)
[2019-10-17 11:40] LABS: CALCIUM 8.9 mg/dL (8.4-11.0); CREATININE 0.7 mg/dL (0.55-1.30); POTASSIUM 3.6 mmol/L (3.5-5.1)
[2019-10-17 11:45] LABS: ALBUMIN 2.9 g/dL (3.4-4.8); TOTAL BILIRUBIN 0.9 mg/dL (0.0-1.0)
--- NOTE | 2019-10-17 12:08 | NUR ---
Patient was able to eat her lunch meal without any nausea or discomfort. She is also ambulatory with minimal discomfort. Bed is low, locked, 2 side rails up and call light is within reach. Nilsa ROA
--- NOTE | 2019-10-17 14:02 | NUR ---
was paged in order to have him clear patient for discharge as had mentioned it was ok by his standpoint. Waiting for call back, informed patient that surgeon was paged. Nilsa ROA
[2019-10-17 14:28] VITALS: BP_SYST 121
--- NOTE | 2019-10-17 14:45 | NUR ---
Dr. Jaquez was paged again as no call back, explained to patient that surgeon may be in surgery and that is the reason he does not call back right away. She verbalized comprehension. Nilsa ROA
[2019-10-17 15:32] VITALS: BP_SYST 149
--- NOTE | 2019-10-17 16:20 | NUR ---
Patient upset and stated she wants to leave with or without doctors orders, tried to page again before we provide the alternative form of AMA. Patient said she will wait a little bit longer as she does not want to be here another day. Nilsa ROA
[2019-10-17 16:23] VITALS: BP_SYST 138
--- NOTE | 2019-10-17 16:43 | NUR ---
consented DC. Patient was given discharge instructions and education on how to care for surgery, to follow up w/ in 1 week (number was provided). She denies any questions and verbalized comprehension. IV was removed, belongings reconciled and she signed the discharge papers. Patients is picking her up. Ashley ROA
== END 2019-10-17 15:24 | disposition home or self-care (01) | DRG 419 ==
LOC: SED 15:52 → SMU 19:23
PROVIDERS: ADMIT Internal Medicine Hospice and Palliative Medicine; ATTEND Internal Medicine Hospice and Palliative Medicine
PROC: 0FN44ZZ Release Gallbladder, Percutaneous Endoscopic Approach (ICD-10-PCS; 2019-10-16)
PROC: BF121ZZ Fluoroscopy of Gallbladder using Low Osmolar Contrast (ICD-10-PCS; 2019-10-16)
PROC: 0FT44ZZ Resection of Gallbladder, Percutaneous Endoscopic Approach (ICD-10-PCS; principal; 2019-10-16 08:05)
DX: K80.10 Calculus of gallbladder with chronic cholecystitis without obstruction (principal); K21.9 Gastro-esophageal reflux disease without esophagitis; Z20.828 Contact with and (suspected) exposure to other viral communicable diseases; Z79.899 Other long term (current) drug therapy; Z79.82 Long term (current) use of aspirin; Z88.2 Allergy status to sulfonamides
CPT/HCPCS: 36415; 71045; 74300; 76700-TC; 80053; 81003; 83690-TC; 84484; 85025; 85610-TC; 85730-TC; 86886; 86900; 86901; 87081; 88304; 93005; 94640; 96372; 99285; C1727; C9290; J0330; J0690; J1170; J1200; J1610; J1885; J2001; J2270; J2405; J2704; J2710; J3010; J3490; J7030; J7042; J7120; J7626; Q0162; Q9967; U0003-CS